=== PATIENT | female | born 1995 | race Caucasian/White ===

== ENCOUNTER 2017-08-24 00:53 | Emergency (ER) | payer MEDICAID ==
[2017-08-24] MEDS ORDERED: Ketorolac 60 MG/2 ML SDV IM ONE (01:18)
[2017-08-24] MEDS ORDERED: Ondansetron 4 MG/2 ML SDV IM ONE (01:19)
[2017-08-24] MEDS ORDERED: SUMAtriptan 25 MG Tab ONE (01:50)
--- NOTE | 2017-08-24 08:25 | ER ---
DATE OF SERVICE: 08/24/2017 HISTORY OF PRESENT ILLNESS: A 22-year-old lady who comes in with her with complaints of a migraine that started about an hour ago. They were sitting around a campfire and was just getting ready to go to bed when she felt the symptoms developed. The pain is on the right side of her head involving the catholic area and it feels like it is behind her eye. She has been nauseated and has been vomiting and she feels shaky as well. The patient states this is typical when she gets a bad migraine. She has had history of migraines for several years. She has had migraine medication in the past, but is not needed it lately and has been out of it for a while. She tried taking ibuprofen, but vomited shortly afterwards. She denies any recent falls or injuries. OBJECTIVE: GENERAL APPEARANCE: The patient is awake, she is alert. She is visibly shaking. Extra blankets are being added to help warm her up. HEENT: Eyes, pupils equal, round, and reactive to light. EOMs are intact. NECK: Supple. LUNGS: Clear. CARDIAC: Heart sounds distinct without murmurs. SKIN: Otherwise warm and dry. DIAGNOSIS: Migraine headache. TREATMENT PLAN: Toradol 45 mg was given IM, also Zofran 8 mg was given IM. The patient was monitored for about 25 minutes and her symptoms are significantly improved. She states her headache is much better. She is not nauseated anymore and she is not shaking anymore. At this point, she will be discharged home. We will send two Imitrex tablets with her 50 mg each. I advised the patient to use the Imitrex tablets as needed. She can take one if her headache starts to reoccur or if it is not gone when she gets home. The second one can be taken at least 2 hours later as needed. The patient is to go home, try to get a good night's sleep and she should follow up with her primary care provider to get a refill of her migraine-type medication within the next day or two. The patient has no further questions. FREDY/TOMY /[id number] JAN
== END 2017-08-24 01:57 | disposition home or self-care (01) ==
LOC: LB.ED 00:53
DX: G43.909 Migraine, unspecified, not intractable, without status migrainosus (principal)
CPT/HCPCS: 96372; 99283-25; A9270-GY; J1885; J2405